=== PATIENT | male | born 1980 | race Caucasian/White ===

== ENCOUNTER 2022-05-24 13:58 | Outpatient (CLI) | payer OTHER, SELFPAY ==
[2022-05-24 21:20] LABS: Cholesterol* 180 mg/dL (90-199); HDL Cholesterol* 24 mg/dL (>=40); LDL Cholesterol Calculated 77 mg/dL (<100); Triglycerides* 397 mg/dL (40-149)
== END 2022-05-24 13:59 | disposition home or self-care (01) ==
LOC: LKVREF 13:59
PROVIDERS: Visit Provider Student in an Organized Health Care Education/Training Program
DX: Z00.00 Encounter for general adult medical examination without abnormal findings (principal); R10.9 Unspecified abdominal pain; Z13.6 Encounter for screening for cardiovascular disorders
CPT/HCPCS: 80061